=== PATIENT | female | born 1990 | race African-American/Black ===

== ENCOUNTER 2016-07-16 15:58 | Emergency (ER) | payer OTHER ==
[~2016-07-16] VITALS: Ht 157.5 cm; Wt 63.5 kg
[2016-07-16 16:14] LABS: URINE BILIRUBIN NEGATIVE (Negative); URINE BLOOD 3+ (Negative); URINE COLOR YELLOW; URINE GLUCOSE-RANDOM* NEGATIVE (Negative); URINE KETONES NEGATIVE (Negative); URINE NITRITE NEGATIVE (Negative); URINE PROTEIN (DIPSTICK) 2+ (Negative); URINE SPECIFIC GRAVITY <= 1.005 (1.003-1.035); URINE UROBILINOGEN 0.2 E.U./dl (0.2-1.0)
[2016-07-16 16:22] LABS: SQUAMOUS 4-10 Moderate /LPF (0-3); URINE RBC 3-10 Few /HPF (0-2); URINE WBC >25 Many /HPF (0-5)
[2016-07-16 16:23] LABS: CASTS None Seen /LPF (None Seen); CRYSTALS None Seen /LPF (None Seen)
[2016-07-16 17:05] LABS: HEMATOCRIT 33.8 % (37.0-47.0); HEMOGLOBIN 11.4 gm/dL (12.0-15.0); MCH 30.1 pg (26.0-34.0); MCHC 33.6 g/dL (28.0-37.0); MCV 89.6 fL (80.0-100.0); PLATELET COUNT 260 thou/uL (150-400); RBC 3.77 mil/uL (4.20-5.00); RDW 12.6 % (10.5-14.5); WBC 16.9 thou/uL (4.0-11.0)
[2016-07-16 17:06] LABS: MANUAL DIFF YES
[2016-07-16 17:14] LABS: CALCIUM 9.2 mg/dL (8.5-10.1); POTASSIUM 3.6 mmol/L (3.5-5.1)
[2016-07-16 17:19] LABS: TOTAL BILIRUBIN 0.6 mg/dL (<0.1-1.0); TOTAL PROTEIN 7.9 g/dL (6.4-8.2)
[2016-07-16 17:36] LABS: ABSOLUTE NEUTROPHILS 14.5 thou/uL (1.4-8.2); TOTAL CELL COUNT 100
[2016-07-16] MEDS ORDERED: KEFLEX500 MG PO (17:50)
[2016-07-16] MEDS ORDERED: ONDANSETRON HCL4 M2 PO (17:50)
[2016-07-16] MEDS ORDERED: NORCO 5-325 TA1 EACH PO (17:50)
[2016-07-16 18:26] VITALS: BP 121/71
== END 2016-07-16 18:27 | disposition home or self-care (01) ==
LOC: ER 15:58
PROVIDERS: Nurse Practitioner Family
DX: N12 Tubulo-interstitial nephritis, not specified as acute or chronic (principal)